=== PATIENT | male | born 1945 | race Caucasian/White ===

== ENCOUNTER 2017-03-02 05:02 | Inpatient (IN) | payer BC, OTHER ==
[2017-02-26 16:48] VITALS: BMI 33.0
[~2017-03-02 05:02] MED LIST: BACITRACIN 30 GM TUBE TOPICAL OINTMENT TP ONE; BACITRACIN 50,000 UNITS VIAL TP ONE; THROMBIN (BOVINE) 5,000 UNIT VIAL TP ONE
--- NOTE | 2017-03-02 07:37 | HP ---
History & Physical Update - History History: No Change - Physical Physical: No Change - Assessment Assessment: No Change - Plan Plan: No Change (71 yo M presents today for a planned lumbar laminectomy L3-[address] Mckinney. This is my first time meeting the patient. I have informed him that I will be assisting Dr. Mckinney for today's surgery. There are no changes in the H&P present in the paper chart.)
[2017-03-02] MEDS ORDERED: BACITRACIN 30 GM TUBE TOPICAL OINTMENT ONE (07:40)
[2017-03-02] MEDS ORDERED: ROCURONIUM BROMIDE 50 MG/5 ML VIAL ONE ×2 (07:50→08:45)
[2017-03-02] MEDS ORDERED: PROPOFOL 20 ML ONE (07:50)
[2017-03-02] MEDS ORDERED: MIDAZOLAM HCL 2 MG/2 ML SINGLE DOSE VIAL ONE (07:50)
[2017-03-02] MEDS ORDERED: ceFAZolin SODIUM 1 GM VIAL IVPB ONE (08:15)
[2017-03-02] MEDS ORDERED: ceFAZolin SODIUM 1 GM VIAL ONE ×2 (08:29→15:50)
[2017-03-02] MEDS ORDERED: GLYCOPYRROLATE 0.2 MG/1 ML VIAL ONE (08:29)
[2017-03-02] MEDS ORDERED: ONDANSETRON 4 MG/2 ML VIAL ONE (08:29)
[2017-03-02] MEDS ORDERED: LIDOCAINE HCL/PF 2% SDV 5ML VIAL ONE (08:29)
[2017-03-02] MEDS ORDERED: DEXAMETHASONE SOD PHOSPHATE 4 MG/1 ML VIAL ONE (08:29)
[2017-03-02] MEDS ORDERED: hydrALAZINE HCL 20 MG/ML VIAL ONE (08:29)
[2017-03-02] MEDS ORDERED: BACITRACIN 50,000 UNITS VIAL TP ONE (08:41)
[2017-03-02] MEDS ORDERED: THROMBIN (BOVINE) 5,000 UNIT VIAL TP ONE (08:41)
[2017-03-02] MEDS ORDERED: DESFLURANE GAS 240 ML BOTTLE IH ONE (08:51)
[2017-03-02] MEDS ORDERED: ePHEDrine SULFATE 50 MG/1 ML AMPULE ONE (09:20)
[2017-03-02] MEDS ORDERED: BUPIVACAINE HCL/PF 0.5% (5MG/ML) 10 ML VIAL ONE (10:10)
[2017-03-02] MEDS ORDERED: BUPIVACAINE HCL/PF 0.5% (5MG/ML) 10 ML VIAL IJ ONE (10:20)
[2017-03-02] MEDS ORDERED: ONDANSETRON 4 MG/2 ML VIAL IVPB PRN (11:03)
[2017-03-02] MEDS ORDERED: BISACODYL 10 MG SUPP.RECT RC PRN (11:03)
--- NOTE | 2017-03-02 11:03 | OP ---
Operative Note - Note: Operative Date: 03/02/17 Pre-Operative Diagnosis: spinal stenosis; DDD; radiculopathy; mechanical instability Operation: Partial B L3, L4, L5 laminectomies, medial facetectomies, foramentomies L3-4 and L4-5; posterolateral bone graft for fusion L3-4 and L4-5 ; microdissection; autologous bone dust and allorgraft Findings: Segmental hypermobility L3-4 and L4-5; stenosis L3-4 > L4-5; Firm disc bulge L3- 4 Implants: [place] 1cc + autologous bone dust Post-Operative Diagnosis: Same as Pre-op Surgeon: Dick Mckinney Cancer Researcher: Layne Estrada Anesthesiologist/SUPERVISOR FRONT: Maria T Bull MD Anesthesia: General Estimated Blood Loss (mls): 50
[2017-03-02] MEDS ORDERED: BACITRACIN 30 GM TUBE TOPICAL OINTMENT TP ONE (11:13)
[2017-03-02] MEDS ORDERED: HYDROmorphone *PCA* 10MG/50ML DISP.SYRIN PCA ONE (11:32)
--- NOTE | 2017-03-02 11:34 | SURG ---
Surgery Demand Generation Manager Note Demand Generation Manager: Layne Estrada PA-C Date of Service: 03/02/17 Diagnosis: spinal stenosis; DDD; radiculopathy; mechanical instability Procedure: Partial bilateral L3, L4, L5 laminectomies, medial facetectomies, foramenotomies L3-4 and L4-5; posterolateral bone graft for fusion L3-4 and L4-5 ; autologous bone dust and allograft I was present for the entirety of the operative procedure. For further detail, please refer to operative report. Visit type - Case Type Case Type: Scheduled Admission - Emergency Emergency Visit: No - New patient This patient is new to me today: Yes Date on this admission: 03/02/17 - Critical Care Critical Care patient: No
[2017-03-02] MEDS ORDERED: PROMETHAZINE HCL 25 MG/1 ML VIAL IVPB PRN (11:35)
[2017-03-02] MEDS ORDERED: DEXAMETHASONE SOD PHOSPHATE 4 MG/1 ML VIAL IVPUSH PRN (11:35)
--- NOTE | 2017-03-02 11:37 | PN ---
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
[2017-03-02] MEDS: HYDROmorphone *PCA* 10MG/50ML DISP.SYRIN PCA SCH (11:40)
[2017-03-02] MEDS ORDERED: LACTATED RINGERS SOLUTION 1,000 ML IV SCH (11:45)
[2017-03-02] MEDS: diazePAM 5 MG TABLET PO SCH ×3 (12:10→21:23)
[2017-03-02 12:21] LABS: MCH 28.7 pg (25.7-33.7); MEAN CELL VOLUME 86.8 fl (80-96); MEAN PLT VOLUME 7.2 fl (7.5-11.1); PLATELET COUNT 203 K/MM3 (134-434); RDW 13.3 % (11.9-15.9)
[2017-03-02 12:52] LABS: CALCIUM 8.8 mg/dL (8.5-10.1); CREATININE 1.2 mg/dL (0.7-1.3)
[2017-03-02] MEDS: DOCUSATE SODIUM 100 MG CAPSULE (FP) PO SCH ×2 (15:51→21:24)
[2017-03-02] MEDS: CEFAZOLIN 1 GM/D5W 50 ML IVPB SCH ×2 (16:02→21:22)
[2017-03-02] MEDS: D5-1/2NS+20 MEQ KCL - 1,000 ML IV SCH (16:03)
[2017-03-02] MEDS ORDERED: CEFAZOLIN (PRE-DOCKED) 50 ML IVPB ONE (21:15)
[2017-03-02] MEDS: NEBIVOLOL 10 MG TABLET (FP) PO SCH (21:23)
[2017-03-02] MEDS: NIFEdipine E.R 60 MG TABLET (UD) PO SCH (21:24)
[2017-03-02] MEDS: ACETAMINOPHEN 325 MG TABLET (FP) PO PRN (21:24)
[2017-03-03] MEDS ORDERED: CEFAZOLIN (PRE-DOCKED) 50 ML IVPB ONE (02:46)
[2017-03-03] MEDS: CEFAZOLIN 1 GM/D5W 50 ML IVPB SCH (02:47)
[2017-03-03] MEDS: D5-1/2NS+20 MEQ KCL - 1,000 ML IV SCH ×4 (02:47→16:55)
[2017-03-03] MEDS: diazePAM 5 MG TABLET PO SCH ×3 (06:44→22:10)
[2017-03-03] MEDS: DOCUSATE SODIUM 100 MG CAPSULE (FP) PO SCH ×3 (06:44→22:09)
--- NOTE | 2017-03-03 07:51 | PN ---
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
[2017-03-03] MEDS ORDERED: PT OWN MED DRAWER 7, Y5N ONE (09:29)
[2017-03-03] MEDS: LISINOPRIL 20 MG TABLET (FP) PO SCH (09:42)
[2017-03-03] MEDS: NIFEdipine E.R 60 MG TABLET (UD) PO SCH ×2 (09:42→22:10)
[2017-03-03] MEDS: NEBIVOLOL 10 MG TABLET (FP) PO SCH ×2 (09:42→22:09)
[2017-03-03] MEDS: FUROSEMIDE 40 MG TABLET (FP) PO SCH (09:42)
[2017-03-03] MEDS: HYDROmorphone *PCA* 10MG/50ML DISP.SYRIN PCA SCH (13:02)
--- NOTE | 2017-03-03 14:26 | OP ---
DATE OF OPERATION: 03/02/2017 PREOPERATIVE DIAGNOSES: 1. L3-L4 greater than L4-L5 degenerative disk disease with bilateral spinal stenosis and lumbar radiculopathy. 2. Obesity. 3. Hypertension. 4. Mechanical instability of the lumbar spine. POSTOPERATIVE DIAGNOSES: 1. L3-L4 greater than L4-L5 degenerative disk disease with bilateral spinal stenosis and lumbar radiculopathy. 2. Obesity. 3. Hypertension. 4. Mechanical instability of the lumbar spine. ATTENDING SURGEON: Dick Rivera MD CHECK SERVICES CLERK: LIBIA Kessler ANESTHESIA: General endotracheal. ANESTHESIOLOGIST: Maria T Bull MD ESTIMATED BLOOD LOSS: 50 mL. PROCEDURE: 1. Partial bilateral L3, L4, and L5 laminectomies for spinal canal lateral recessed decompression including medial facetectomy and foraminotomy at L3-L4 and L4-L5 for decompression of the thecal sac as well as L3, L4, and L5 nerve roots bilaterally ([id number], [id number], and [id number]). 2. [place] of autologous laminar bone dust ([id number]). 3. Posterolateral fusion L3-4 and L4-L5 with autologous bone dust and [place] ( at L3-L4 and L4-L5 ([id number] and [id number]). 4. Microsurgical dissection with operating microscope and microsurgical techniques ([id number]). INDICATIONS: The patient is a 71-year-old male with history of intractable lower back pain, bilateral lumbar radiculopathy. He has undergone multiple modality conservative treatment, but he remains significantly symptomatic. He is opting for surgical intervention. The risks of the procedure include, but are not limited to, bleeding, infection, dural tear with CSF leak, neurological injury, increased thromboembolic risks, [place], stroke, seizure, and . The patient understands the indications for the procedure, the procedure in detail, risks and benefits, and alternatives for treatment of his lumbar condition, and he wished to proceed. No guarantees were given for a favorable outcome. Preoperative medical clearance was obtained. PROCEDURE IN DETAIL: After the patient was taken to the operating room, he was placed in supine position. After general anesthesia was induced and appropriate monitoring lines were placed, he was placed into a prone position on a Otis frame. All pressure points were checked and padded. Localization was obtained with the spinal needle in place and skin was prepped with alcohol and Betadine. O2 saturation of bilateral lower extremity testing was both with 100%. After the patient was sterilely prepped and draped, an approximately 3-inch incision was opened in the midline from about L3 to L5. Subperiosteal dissection was carried out with the periosteal elevator and monopolar electrocautery. A significant amount of paraspinal edema and soft tissue edema and fluid were noted. Subperiosteal dissection was carried out bilaterally preserving the midline structure at the supraspinous as well as the interspinous ligament as well as the spinous processes. Laminar exposure was obtained from top of L3 to bottom of L5. This was done with monopolar electrocautery as well as periosteal elevator. Two self-retaining retractors were inserted. At this point, another localizing x-ray was obtained with the clamp at the bottom of the L4 lamina. After position was verified, partial left L3, L4, and L5 laminectomies were carried out. Bottom of lamina L3, top and bottom of lamina L4, and top of lamina L5 were burred down with high speed pneumatic drill. The medial facetectomy at L3-L4 and L4-L5 was also carried out with high speed pneumatic drill, angled curette, and Kerrison rongeur. As the dura was under chronic pressure, it was starting to bulge out after decompression proceeded. The underlying ligament of flavum was dissected free with the angled curette and resected with the Kerrison rongeur. The canal was palpated with a dental tool to ascertain the patency after decompression was complete. Likely from chronic pressure, the dura was quite thin, especially over the right L3-L4 area just above the disk space level. A 6-0 Prolene suture was used to reinforce the area to prevent a future CSF leak. The dura was extremely thinned at this point, and the arachnoid membrane appears to be bulging right through the dura prior to the repair. Attention was turned to the left-sided L3-4 inter-laminar space, where the decompression was similarly performed as well as bilateral L4-L5 interlaminar space. Bilateral foraminotomy was carried out with angled curette and Kerrison rongeur. The wounds were mirror irrigated with antibiotic-containing irrigation. The midline structure was preserved as stated earlier. There was some hypermobility despite preserving the midline, however. Epidural hemostasis was obtained with bipolar electrocautery and thrombin-soaked powdered Gelfoam. The posterolateral surface of the spine was exposed, and the lateral exposure was obtained, and the proximal transverse process was decorticated with high-speed pneumatic drill. Previously, during the laminectomy, the bone dust was harvested. It was mixed with 1 mL of Tarun. After the decompression was completed, Valsalva maneuver was performed, and there was no CSF leak. The wounds were then irrigated with copious amounts of antibiotic-containing irrigation. The L3-L4 and L4-L5 neural foramina were decompressed bilateral as well as the bilateral L3, L4, and L5 nerve roots. The thecal sac was pulsating nicely with CSF pulsation after decompression was completed. A piece of DuraGen was laid on the decompression, deep to the decompressed area , at L3-L4 and L4-L5 bilaterally as a precaution with thin layer of DuraSeal layer on top of the DuraGen as a precaution. Then, 10 mL of 0.5% Marcaine was injected into the paraspinal muscles. At this point, posterolateral surface of the spine at L3-L4 and L4-L5 had been previously decorticated, and was now packed with autologous morselized bone dust mixed with [place]. This was done at L3-L4 and L4-L5 bilaterally. Dorsal lumbar muscle hemostasis was obtained with bipolar electrocautery. Dorsal lumbar fascia was then closed with 0 Vicryl suture towards the midline. At the midline, subcutaneous fascia was closed with 3-0 Vicryl suture, and skin was closed with 4-0 Vicryl running subcuticular sutures. Steri-Strips and sterile occlusive dressing were applied. The patient tolerated the procedure well, and was turned back to the supine position and extubated. He was moving bilateral upper and lower extremities well in the recovery room. All needle, sponge, and lap counts were found to be correct. He received 1 dose of 2 g of Ancef prior to the incision. The OR time-out procedure was followed. The patient and the were both made aware of the intraoperative findings as well as the details of surgery done. DICK RIVERA M.D. [id number] MTDD
--- NOTE | 2017-03-03 14:36 | PN ---
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
[2017-03-03] MEDS: ACETAMINOPHEN 325 MG TABLET (FP) PO PRN (22:10)
[2017-03-04] MEDS: DOCUSATE SODIUM 100 MG CAPSULE (FP) PO SCH ×3 (06:38→22:31)
[2017-03-04] MEDS: diazePAM 5 MG TABLET PO SCH ×3 (06:39→22:31)
--- NOTE | 2017-03-04 08:20 | PN ---
Progress Note (short form) - Note Progress Note: POD #2 - s/p bilateral partial laminectomy L3-L5. Pt. doing well, resting comfortably in bed. No complaints. Good pain control. 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
[2017-03-04] MEDS ORDERED: oxyCODONE HCL 5 MG TABLET PO PRN (08:21)
--- NOTE | 2017-03-04 08:52 | PN ---
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
[2017-03-04] MEDS: LISINOPRIL 20 MG TABLET (FP) PO SCH (09:40)
[2017-03-04] MEDS: NEBIVOLOL 10 MG TABLET (FP) PO SCH ×2 (09:40→22:31)
[2017-03-04] MEDS: FUROSEMIDE 40 MG TABLET (FP) PO SCH (09:40)
[2017-03-04] MEDS: NIFEdipine E.R 60 MG TABLET (UD) PO SCH ×2 (09:40→22:31)
[2017-03-04 10:11] LABS: BASOPHIL 0.5 % (0-2.0); EOSINOPHIL 0.2 % (0-4.5); MCH 29.1 pg (25.7-33.7); MCHC 33.4 g/dl (32.0-35.9); MEAN CELL VOLUME 87.3 fl (80-96); MEAN PLT VOLUME 7.4 fl (7.5-11.1); NEUTROPHILS 82.3 % (42.8-82.8); PLATELET COUNT 178 K/MM3 (134-434); RDW 13.2 % (11.9-15.9); WHITE BLOOD COUNT 14.6 K/mm3 (4.0-10.0)
[2017-03-04] MEDS: oxyCODONE HCL 5 MG TABLET PO PRN ×2 (10:24→14:58)
[2017-03-04] MEDS: D5-1/2NS+20 MEQ KCL - 1,000 ML IV SCH (10:25)
[2017-03-05] MEDS: oxyCODONE HCL 5 MG TABLET PO PRN ×3 (01:07→22:14)
[2017-03-05] MEDS: DOCUSATE SODIUM 100 MG CAPSULE (FP) PO SCH ×3 (05:12→22:10)
[2017-03-05] MEDS: diazePAM 5 MG TABLET PO SCH ×3 (05:13→22:10)
--- NOTE | 2017-03-05 07:30 | PN ---
Progress Note (short form) - Note Progress Note: NEUROSURGERY No leg pain Incisional pain letting up slightly Spasm Still difficulty getting up and moving around POD #3 Tmax 99.6, VSS Incisional pain Motor 5/5 B DF/PF Sensation intact LT Dressing with no drainage- changed Incentive spirometry Completed IV abx WBC 14.6, will repeat today PO pain meds with iv prn dilaudid for breakthrough pain Adv diet PT
[2017-03-05] MEDS: NIFEdipine E.R 60 MG TABLET (UD) PO SCH ×2 (09:31→22:10)
[2017-03-05] MEDS: NEBIVOLOL 10 MG TABLET (FP) PO SCH ×2 (09:31→22:10)
[2017-03-05] MEDS: LISINOPRIL 20 MG TABLET (FP) PO SCH (09:32)
[2017-03-05] MEDS: FUROSEMIDE 40 MG TABLET (FP) PO SCH (09:32)
[2017-03-05 12:04] LABS: BASOPHIL 0.3 % (0-2.0); EOSINOPHIL 0.8 % (0-4.5); MCH 28.8 pg (25.7-33.7); MEAN CELL VOLUME 87.3 fl (80-96); MEAN PLT VOLUME 7.1 fl (7.5-11.1); NEUTROPHILS 80.8 % (42.8-82.8); PLATELET COUNT 194 K/MM3 (134-434); RDW 13.2 % (11.9-15.9)
[2017-03-05] MEDS ORDERED: PT OWN MED DRAWER 7, Y5N ONE (13:45)
[2017-03-06] MEDS: diazePAM 5 MG TABLET PO SCH ×3 (06:04→22:05)
[2017-03-06] MEDS: DOCUSATE SODIUM 100 MG CAPSULE (FP) PO SCH ×3 (06:04→22:05)
[2017-03-06] MEDS: ACETAMINOPHEN 325 MG TABLET (FP) PO PRN ×2 (06:11→23:43)
--- NOTE | 2017-03-06 07:38 | PN ---
Progress Note (short form) - Note Progress Note: NEUROSURGERY No leg pain Incisional pain letting up slightly Spasm Still difficulty getting up and moving around POD #3 Tmax 101.1, VSS Incisional pain Motor 5/5 B DF/PF Sensation intact LT Dressing C/D/I Incentive spirometry Blood culture x1 WBC 14, will repeat today PO pain meds with iv prn dilaudid for breakthrough pain Adv diet PT
--- NOTE | 2017-03-06 08:34 | CONSULT ---
Consultation: REQUESTING PROVIDER: CONSULT REQUEST: (Infectious Disease) We have been asked to medically evaluate this patient for fever and cough. HISTORY OF PRESENT ILLNESS: Patient is a 71 year old male with a PMHx of HTN who presented for an elective surgery wit Dr. Mckinney for Laminectomy. Patient is POD #4 and was found to be febrile this morning with a temperature of 101.1 F. Patient does report that usually in the mornings when he wakes up he feels warm but resolves immediately after. Otherwise, patient denies any dysuria, leg swelling of pain, cough, shortness of breath, chest pain, palpitations, dizziness, headaches. Patient denies any recent travel and denies any recent dental procedure. REVIEW OF SYSTEMS: CONSTITUTIONAL: Present: fever Absent: chills, diaphoresis, generalized weakness, malaise, loss of appetite, weight change HEENT: Absent: rhinorrhea, nasal congestion, throat pain, throat swelling, difficulty swallowing, mouth swelling, ear pain, eye pain, visual changes CARDIOVASCULAR: Absent: chest pain, syncope, palpitations, irregular heart rate, lightheadedness , peripheral edema RESPIRATORY: Absent: cough, shortness of breath, dyspnea with exertion, orthopnea, wheezing, stridor, hemoptysis GASTROINTESTINAL: Absent: abdominal pain, abdominal distension, nausea, vomiting, diarrhea, constipation, melena, hematochezia GENITOURINARY: Absent: dysuria, frequency, urgency, hesitancy, hematuria, flank pain, genital pain MUSCULOSKELETAL: Absent: myalgia, arthralgia, joint swelling, back pain, neck pain SKIN: Absent: rash, itching, pallor HEMATOLOGIC/IMMUNOLOGIC: Absent: easy bleeding, easy bruising, lymphadenopathy, frequent infections ENDOCRINE: Absent: unexplained weight gain, unexplained weight loss, heat intolerance, cold intolerance NEUROLOGIC: Absent: headache, focal weakness or paresthesias, dizziness, unsteady gait, seizure, mental status changes, bladder or bowel incontinence PSYCHIATRIC: Absent: anxiety, depression, suicidal or homicidal ideation, hallucinations. PHYSICAL EXAMINATION Vital Signs - 24 hr 03/05/17 03/05/17 03/05/17 09:00 14:07 17:30 Temperature 98.3 F 98.4 F 99.5 F Pulse Rate 83 58 L 83 Respiratory 20 16 20 Rate Blood Pressure 139/95 175/85 141/71 O2 Sat by Pulse 92 L Oximetry (%) 03/05/17 03/05/17 03/06/17 21:00 22:00 06:30 Temperature 98.8 F 101.1 F H Pulse Rate 80 78 Respiratory 20 20 Rate Blood Pressure 146/80 159/75 O2 Sat by Pulse 92 L Oximetry (%) GENERAL: Awake, alert, and fully oriented, in no acute distress. NECK: Supple without lymphadenopathy, JVD, or masses. LUNGS: Breath sounds equal, clear to auscultation bilaterally. No wheezes, and no crackles. No accessory muscle use. HEART: Regular rate and rhythm, normal S1 and S2 without murmur, rub or gallop. ABDOMEN: Soft, nontender, not distended, normoactive bowel sounds, no guarding, no rebound, no masses. No hepatomegaly or splenomegaly. EXTREMITIES: No peripheral edema. SKIN: Warm, dry, mild erythema across the lower back with tenderness surrounding the surgical incision site Laboratory Results - last 24 hr 03/05/17 11:50 WBC 14.0 H RBC 4.54 Hgb 13.1 Hct 39.6 MCV 87.3 MCHC 33.0 RDW 13.2 Plt Count 194 MPV 7.1 L Neutrophils % 80.8 Lymphocytes % 8.9 D Monocytes % 9.2 Eosinophils % 0.8 D Basophils % 0.3 Active Medications Generic Name Dose Route Start Last Admin Trade Name Jose Mq PRN Reason Stop Dose Admin Acetaminophen 650 mg 03/02/17 11:03 03/06/17 06:11 Tylenol - PO 650 mg Q6H PRN Administration FEVER Bisacodyl 10 mg 03/02/17 11:03 Dulcolax Suppository - RC DAILY PRN CONSTIPATION Diazepam 5 mg 03/02/17 22:00 03/06/17 06:04 Valium - PO 5 mg TID [facility] Administration Docusate Sodium 100 mg 03/02/17 14:00 03/06/17 06:04 Colace - PO 100 mg TID [place] Administration Furosemide 40 mg 03/03/17 10:00 03/05/17 09:32 Lasix - PO Not Given DAILY [facility] Lisinopril 40 mg 03/03/17 10:00 03/05/17 09:32 Prinivil PO 40 mg DAILY [place] Administration Nebivolol 10 mg 03/02/17 22:00 03/05/17 22:10 Bystolic - PO 10 mg BID [place] Administration Nifedipine 60 mg 03/02/17 22:00 03/05/17 22:10 Procardia Xl - PO 60 mg BID [place] Administration Ondansetron HCl 4 mg 03/02/17 11:03 Zofran Injection IVPB Q6H PRN NAUSEA AND/OR VOMITING Oxycodone HCl 15 mg 03/05/17 16:18 03/05/17 22:14 Roxicodone - PO 15 mg Q6H PRN Administration PAIN Promethazine HCl 12.5 mg 03/02/17 11:35 Phenergan Injection - IVPB Q6H PRN NAUSEA AND/OR VOMITING ASSESSMENT/PLAN: S/P laminectomy on 03/02/2017 Postoperative fever Temperature spiked up to 101.2 Chest X-ray ordered and revealed no acute pathology U/A ordered and negatie Blood and urine cultures sent Received [facility] preoperatively and three bags postoperatively Will continue to monitor off antibiotics Dispo: We will continue to follow the patient. Thank you for this consultative opportunity. Visit type - Emergency Visit Emergency Visit: No - New Patient This patient is new to me today: Yes Date on this admission: 03/09/17 - Critical Care Critical Care patient: No
[2017-03-06 08:45] LABS: BASOPHIL 0.4 % (0-2.0); EOSINOPHIL 0.9 % (0-4.5); MCH 28.6 pg (25.7-33.7); MCHC 32.8 g/dl (32.0-35.9); MEAN CELL VOLUME 87.2 fl (80-96); MEAN PLT VOLUME 7.6 fl (7.5-11.1); NEUTROPHILS 83.2 % (42.8-82.8); PLATELET COUNT 232 K/MM3 (134-434); RDW 13.1 % (11.9-15.9); WHITE BLOOD COUNT 14.6 K/mm3 (4.0-10.0)
[2017-03-06] MEDS: NIFEdipine E.R 60 MG TABLET (UD) PO SCH ×2 (09:14→22:05)
[2017-03-06] MEDS: LISINOPRIL 20 MG TABLET (FP) PO SCH (09:14)
[2017-03-06] MEDS: oxyCODONE HCL 5 MG TABLET PO PRN ×3 (09:15→23:42)
[2017-03-06] MEDS: NEBIVOLOL 10 MG TABLET (FP) PO SCH ×2 (09:15→22:05)
[2017-03-06] MEDS: FUROSEMIDE 40 MG TABLET (FP) PO SCH (09:16)
--- NOTE | 2017-03-06 10:25 | PN ---
Teaching Attending Note Name of Resident: Rosanna Clifton ATTENDING PHYSICIAN STATEMENT I saw and evaluated the patient. I reviewed the resident's note and discussed the case with the resident. I agree with the resident's findings and plan as documented. SUBJECTIVE: PMH HTN feels well no rigors, no chills no sob, voiding well no BM yet OBJECTIVE: Vital Signs Period Temp Pulse Resp BP Sys/Wade Pulse Ox Last 24 Hr 98.4 F-101.1 F 58-83 16-20 141-175/71-85 92 cor-rrr lungs clear abd soft,nt ext no edema no phlebitis dressing intact on back CBC, BMP 03/06/17 06:15 03/02/17 12:00 ASSESSMENT AND PLAN: fevers s/p laminectomy 03/02 send cultures , UA and urine culture, blood cultures cxray no infiltrate would observe off antibiotics for now Problem List - Problems (1) Postoperative fever Code(s): R50.82 - POSTPROCEDURAL FEVER (2) S/P laminectomy Code(s): Z98.890 - OTHER SPECIFIED POSTPROCEDURAL STATES
[2017-03-06 13:08] LABS: URINE APPEARANCE CLEAR; URINE BILIRUBIN NEGATIVE (NEGATIVE); URINE BLOOD NEGATIVE (NEGATIVE); URINE COLOR YELLOW; URINE GLUCOSE (UA) NEGATIVE (NEGATIVE); URINE KETONE NEGATIVE (NEGATIVE); URINE LEUK ESTERASE NEGATIVE (NEGATIVE); URINE NITRITE NEGATIVE (NEGATIVE); URINE PROTEIN NEGATIVE (NEGATIVE); URINE UROBILINOGEN NEGATIVE E.U./dl (0.2-1.0)
[2017-03-07] MEDS: diazePAM 5 MG TABLET PO SCH ×2 (05:57→14:26)
[2017-03-07] MEDS: DOCUSATE SODIUM 100 MG CAPSULE (FP) PO SCH ×2 (05:57→14:26)
[2017-03-07] MEDS: oxyCODONE HCL 5 MG TABLET PO PRN ×2 (06:00→12:32)
--- NOTE | 2017-03-07 07:50 | PN ---
Progress Note (short form) - Note Progress Note: NEUROSURGERY No leg pain Still difficulty getting up and moving around, but "150% better" than a couple days ago Seen by ID walking to bathroom POD #5 Tmax 99.7 now 99.6, VSS Motor 5/5 B DF/PF Sensation intact LT Dressing C/D/I Incentive spirometry Blood culture negative to date WBC 14 range No abx per ID input for now On colace, mag citrate suggested ID f/u PT
--- NOTE | 2017-03-07 08:08 | PN ---
Progress Note, Physician Chief Complaint: ID No antibiotics Low grade temp Feels well - Current Medication List Current Medications: Active Medications Acetaminophen (Tylenol -) 650 mg PO Q6H PRN PRN Reason: FEVER Last Admin: 03/06/17 23:43 Dose: 650 mg Bisacodyl (Dulcolax Suppository -) 10 mg RC DAILY PRN PRN Reason: CONSTIPATION Diazepam (Valium -) 5 mg PO TID [facility] Last Admin: 03/07/17 05:57 Dose: 5 mg Docusate Sodium (Colace -) 100 mg PO TID [facility] Last Admin: 03/07/17 05:57 Dose: 100 mg Furosemide (Lasix -) 40 mg PO DAILY [facility] Last Admin: 03/06/17 09:16 Dose: Not Given Lisinopril (Prinivil) 40 mg PO DAILY [facility] Last Admin: 03/06/17 09:14 Dose: 40 mg Magnesium Citrate (Citroma -) 300 ml PO ONCE ONE Stop: 03/07/17 07:59 Nebivolol (Bystolic -) 10 mg PO BID [facility] Last Admin: 03/06/17 22:05 Dose: 10 mg Nifedipine (Procardia Xl -) 60 mg PO BID [facility] Last Admin: 03/06/17 22:05 Dose: 60 mg Ondansetron HCl (Zofran Injection) 4 mg IVPB Q6H PRN PRN Reason: NAUSEA AND/OR VOMITING Oxycodone HCl (Roxicodone -) 15 mg PO Q6H PRN PRN Reason: PAIN Last Admin: 03/07/17 06:00 Dose: 15 mg Promethazine HCl (Phenergan Injection -) 12.5 mg IVPB Q6H PRN PRN Reason: NAUSEA AND/OR VOMITING - Objective Vital Signs: Vital Signs Temperature 99.6 F 03/07/17 06:00 Pulse Rate 74 03/07/17 06:00 Respiratory Rate 20 03/07/17 06:00 Blood Pressure 148/78 03/07/17 06:00 O2 Sat by Pulse Oximetry (%) 99 03/06/17 21:00 Constitutional: Yes: Well Nourished, No Distress HENT: Yes: WNL, Atraumatic Neck: Yes: WNL, Supple Cardiovascular: Yes: Regular Rate and Rhythm, S1, S2. No: Murmur Respiratory: Yes: WNL, Regular, CTA Bilaterally Gastrointestinal: Yes: WNL, Normal Bowel Sounds, Soft. No: Tenderness, Epigastrium Wound/Incision: No: Draining, Reddened Labs: CBC, BMP 03/06/17 06:15 03/02/17 12:00 Assessment/Plan Microbiology Laboratory Tests 03/02/17 03/06/17 03/06/17 12:00 06:15 12:45 Hgb 13.0 Hct 39.6 Plt Count 232 BUN 20 H Creatinine 1.2 D Ur Leukocyte Esterase Negative Assessment Day 5 post spinal surgery Elevated WBC noted previously Oct Cultures negative Doubt infection As discussed with Dr Mckinney consider discharge as outpt follow up Miguelito ORNELAS
[2017-03-07 08:48] LABS: BASOPHIL 0.4 % (0-2.0); EOSINOPHIL 1.6 % (0-4.5); MCH 28.7 pg (25.7-33.7); MCHC 32.7 g/dl (32.0-35.9); MEAN CELL VOLUME 87.7 fl (80-96); MEAN PLT VOLUME 7.1 fl (7.5-11.1); NEUTROPHILS 80.7 % (42.8-82.8); PLATELET COUNT 243 K/MM3 (134-434); RDW 13.1 % (11.9-15.9); WHITE BLOOD COUNT 15.5 K/mm3 (4.0-10.0)
[2017-03-07] MEDS ORDERED: MAGNESIUM CITRATE 300 ML BOTTLE PO ONE (09:15)
[2017-03-07 09:17] LABS: ALBUMIN 2.8 g/dl (3.4-5.0); BILIRUBIN,DIRECT 0.2 mg/dL (0.0-0.2); BILIRUBIN,TOTAL 0.8 mg/dL (0.2-1.0)
[2017-03-07] MEDS: NEBIVOLOL 10 MG TABLET (FP) PO SCH (09:44)
[2017-03-07] MEDS: NIFEdipine E.R 60 MG TABLET (UD) PO SCH (09:44)
[2017-03-07] MEDS: LISINOPRIL 20 MG TABLET (FP) PO SCH (09:45)
[2017-03-07] MEDS: FUROSEMIDE 40 MG TABLET (FP) PO SCH (09:45)
--- NOTE | 2017-03-07 10:32 | PN ---
Progress Note (short form) - Note Progress Note: NEUROSURGERY Care d/w ID Blood/urine culture negative to date WBC 15.5 No abx per ID input Discharge home Pt to take temperature and observe incision Instructions given
[2017-03-07 15:12] VITALS: BP 167/79; PULSE 80; TEMP 99.7
== END 2017-03-07 17:20 | disposition home or self-care (01) | DRG 460 ==
LOC: JSAMEDAYSX 05:02 → EDSTATUS 08:00 → J8W 15:32
PROVIDERS: ADMIT Neurological Surgery; ATTEND Neurological Surgery
PROC: 01NB0ZZ Release Lumbar Nerve, Open Approach (ICD-10-PCS; 2017-03-02)
PROC: 01NB0ZZ Release Lumbar Nerve, Open Approach (ICD-10-PCS; 2017-03-02)
PROC: 0SG1071 Fusion of 2 or more Lumbar Vertebral Joints with Autologous Tissue Substitute, Posterior Approach, Posterior Column, Open Approach (ICD-10-PCS; principal; 2017-03-02 08:00)
DX: M51.36 Other intervertebral disc degeneration, lumbar region (principal); M48.06 Spinal stenosis, lumbar region; M54.16 Radiculopathy, lumbar region; I50.9 Heart failure, unspecified; I10 Essential (primary) hypertension; M53.2X6 Spinal instabilities, lumbar region; E66.8 Other obesity; Z68.33 Body mass index [BMI] 33.0-33.9, adult; Z71.3 Dietary counseling and surveillance; M13.88 Other specified arthritis, other site
CPT/HCPCS: 36415; 71020-TC; 72100-TC; 80048; 80051; 80076; 81003; 82150; 85025; 85027; 87040; 87086; 93970-TC; 94010; 94760; 97116-GP; 97162-PG

== ENCOUNTER 2023-04-07 03:50 | Day surgery (SDC) | payer OTHER, BC ==
[2023-04-03 08:58] VITALS: BMI 33.2
[2023-04-07] MEDS ORDERED: ONDANSETRON 4 MG/2 ML VIAL IVPUSH PRN (07:08)
[2023-04-07] MEDS ORDERED: ACETAMINOPHEN 325 MG TABLET (FP) PO PRN (07:08)
[2023-04-07] MEDS ORDERED: oxyCODONE HCL 5 MG TABLET PO PRN ×2 (07:08)
[2023-04-07] MEDS ORDERED: LACTATED RINGERS SOLUTION 1,000 ML IV SCH (07:15)
[2023-04-07] MEDS ORDERED: PROPOFOL 20 ML ONE (07:33)
[2023-04-07] MEDS ORDERED: MIDAZOLAM HCL 2 MG/2 ML SINGLE DOSE VIAL ONE (07:33)
[2023-04-07] MEDS ORDERED: LIDOCAINE HCL/PF 2% SDV 5ML VIAL ONE (07:33)
[2023-04-07] MEDS ORDERED: AMPICILLIN NA/SULBACTAM NA 3 GM VIAL IVPB ONE (07:50)
[2023-04-07] MEDS ORDERED: ONDANSETRON 4 MG/2 ML VIAL ONE ×2 (07:54→10:43)
[2023-04-07] MEDS ORDERED: KETOROLAC TROMETHAMINE 30 MG/1 ML VIAL ONE (07:54)
[2023-04-07] MEDS ORDERED: DEXAMETHASONE SOD PHOSPHATE 4 MG/1 ML VIAL ONE (07:54)
[2023-04-07] MEDS ORDERED: ROCURONIUM BROMIDE 50 MG/5 ML SYRINGE ONE (08:00)
[2023-04-07] MEDS ORDERED: GLYCOPYRROLATE 0.2 MG/1 ML VIAL ONE ×2 (08:09)
[2023-04-07] MEDS ORDERED: NEOSTIGMINE METHYLSULFATE 0.5 MG/1 ML - 10 ML MDV ONE (08:09)
[2023-04-07] MEDS ORDERED: ELECTROLYTE-148 SOLN 1,000 ML IV SCH (08:45)
[2023-04-07] MEDS ORDERED: ACETAMINOPHEN 325 MG TABLET (FP) ONE (10:43)
[2023-04-07] MEDS ORDERED: oxyCODONE HCL 5 MG TABLET ONE (10:43)
[2023-04-07 11:10] VITALS: RESP 16
[2023-04-07 11:50] VITALS: BP 146/71; PULSE 68; TEMP 98
== END 2023-04-07 12:30 | disposition home or self-care (01) ==
LOC: JASU-SURG 03:50
PROVIDERS: ATTEND Urology
PROC: 0T778DZ Dilation of Left Ureter with Intraluminal Device, Via Natural or Artificial Opening Endoscopic (ICD-10-PCS; 2023-04-07)
PROC: 0TBB8ZZ Excision of Bladder, Via Natural or Artificial Opening Endoscopic (ICD-10-PCS; principal; 2023-04-07 07:30)
DX: C67.9 Malignant neoplasm of bladder, unspecified (principal)
CPT/HCPCS: 76000-TC-FY; 88307-TC; 94760; C1894; C2617

== ENCOUNTER 2024-01-07 04:09 | Day surgery (SDC) | payer OTHER, BC ==
[2024-01-05 17:28] VITALS: BMI 29.9
[2024-01-07] MEDS ORDERED: PROPOFOL 40 ML ONE (12:16)
[2024-01-07] MEDS: ceFAZolin SODIUM 1 GM VIAL IVPB ONE (12:25)
[2024-01-07] MEDS ORDERED: LIDOCAINE HCL/PF 2% SDV 5ML VIAL ONE (12:41)
[2024-01-07] MEDS ORDERED: DEXAMETHASONE SOD PHOSPHATE 4 MG/1 ML VIAL ONE (12:41)
[2024-01-07] MEDS ORDERED: ONDANSETRON 4 MG/2 ML VIAL ONE (12:41)
[2024-01-07] MEDS ORDERED: ceFAZolin SODIUM 1 GM VIAL ONE (12:41)
[2024-01-07] MEDS ORDERED: oxyCODONE HCL 5 MG TABLET PO PRN (13:06)
[2024-01-07] MEDS ORDERED: ELECTROLYTE-148 SOLN 1,000 ML IV SCH (13:15)
[2024-01-07 15:31] VITALS: BP 135/60; PULSE 73; RESP 16; TEMP 98.4
== END 2024-01-07 15:45 | disposition home or self-care (01) ==
LOC: JASU-SURG 04:09
PROVIDERS: ATTEND Urology
PROC: 0TBB8ZZ Excision of Bladder, Via Natural or Artificial Opening Endoscopic (ICD-10-PCS; principal; 2024-01-07 13:00)
DX: D09.0 Carcinoma in situ of bladder (principal)
CPT/HCPCS: 88307-TC; 88341-TC; 88342-TC; 94760

== ENCOUNTER 2024-07-06 20:53 | Observation (INO) | payer OTHER, BC ==
[2024-07-06 21:01] VITALS: RESP 18
[2024-07-06 21:52] LABS: BASO % 0.7 % (0-2.0); EOS % 3.2 % (0-4.5); HEMOGLOBIN 12.7 GM/dL (11.7-16.9); LYMPH % 10.9 % (8-40); MCH 25.9 pg (25.7-33.7); MCHC 32.5 g/dl (32.0-35.9); MEAN CELL VOLUME 79.8 fl (80-96); MEAN PLT VOLUME 7.1 fl (7.5-11.1); MONO % 8.8 % (3.8-10.2); NEUT % 76.4 % (42.8-82.8); PLATELET COUNT 289 10^3/uL (134-434); RBC 4.89 M/mm3 (4.00-5.60); RDW 17.5 % (11.9-15.9); WHITE BLOOD COUNT 13.4 K/mm3 (4.0-10.0)
[2024-07-06 22:00] LABS: POTASSIUM 5.9 mmol/L (3.5-5.1)
[2024-07-06 22:02] LABS: INR 0.92 (0.83-1.09); PROTHROMBIN TIME (PATIENT) 10.6 SEC (9.7-13.0)
[2024-07-06 22:03] LABS: CALCIUM 9.1 mg/dL (8.5-10.1)
[2024-07-06 22:04] LABS: ALBUMIN 3.6 g/dl (3.4-5.0); BLOOD UREA NITROGEN 43.2 mg/dL (7-18)
[2024-07-06 22:05] LABS: ACTIVATED PTT 31.2 SECONDS (25.2-36.5)
[2024-07-06 22:07] LABS: CREATININE 1.6 mg/dL (0.55-1.3)
[2024-07-06 22:08] LABS: BILIRUBIN,TOTAL 0.6 mg/dL (0.2-1); TOT PROT 6.8 g/dl (6.4-8.2)
[2024-07-06] MEDS: SODIUM CHLORIDE 0.9% 500 ML INFUS.BAG IV ONE (22:29)
[2024-07-06] MEDS ORDERED: SODIUM ZIRCONIUM CYCLOSILICATE (LOKELMA) 5 GM PACKET ONE (23:06)
[2024-07-06] MEDS: SODIUM ZIRCONIUM CYCLOSILICATE (LOKELMA) 5 GM PACKET PO ONE (23:13)
[2024-07-06] MEDS ORDERED: DEXTROSE 50%-WATER 25 GM/50 ML DISP.SYRIN ONE (23:14)
[2024-07-06] MEDS ORDERED: INSULIN REGULAR HUMAN 100 UNITS/ML *VIAL ONE (23:15)
[2024-07-06] MEDS ORDERED: ACETAMINOPHEN 325 MG TABLET (FP) ONE (23:25)
[2024-07-06] MEDS ORDERED: oxyCODONE HCL 5 MG TABLET ONE (23:25)
[2024-07-06] MEDS: oxyCODONE HCL 5 MG TABLET PO ONE (23:28)
[2024-07-06] MEDS: INSULIN REGULAR HUMAN 100 UNITS/ML *VIAL IVPUSH ONE (23:29)
[2024-07-06] MEDS: DEXTROSE 50%-WATER - 25 GM/50 ML VIAL IVPUSH ONE (23:29)
[2024-07-06] MEDS: ACETAMINOPHEN 325 MG TABLET (FP) PO ONE (23:29)
[2024-07-07 01:53] LABS: EPI CELLS 1 /uL (0-25.1); HYALINE CASTS 1 /uL (0-3.1); PH,URINE 6.5 (5.0-8.0); URINE APPEARANCE CLEAR; URINE BACTERIA 1244 /uL (0-1359); URINE BILIRUBIN NEGATIVE (NEGATIVE); URINE COLOR YELLOW; URINE GLUCOSE (UA) NEGATIVE (NEGATIVE); URINE KETONE NEGATIVE (NEGATIVE); URINE LEUK ESTERASE 2+ (NEGATIVE); URINE NITRITE NEGATIVE (NEGATIVE); URINE PROTEIN NEGATIVE (NEGATIVE); URINE RBC 67 /uL (0-23.9); URINE UROBILINOGEN 0.2 mg/dL (0.2-1.0); URINE WBC 126 /uL (0-25.8)
[2024-07-07 02:20] LABS: POTASSIUM 5.9 mmol/L (3.5-5.1)
[2024-07-07 02:22] LABS: ALBUMIN 3.3 g/dl (3.4-5.0); CALCIUM 8.9 mg/dL (8.5-10.1)
[2024-07-07 02:25] LABS: CREATININE 1.4 mg/dL (0.55-1.3)
[2024-07-07 02:27] LABS: BILIRUBIN,TOTAL 0.4 mg/dL (0.2-1); TOT PROT 6.1 g/dl (6.4-8.2)
[2024-07-07] MEDS: SODIUM ZIRCONIUM CYCLOSILICATE (LOKELMA) 5 GM PACKET PO ONE ×2 (02:27→05:03)
[2024-07-07] MEDS: SODIUM CHLORIDE 1,000 ML IV SCH ×2 (02:27→18:23)
[2024-07-07] MEDS ORDERED: SODIUM ZIRCONIUM CYCLOSILICATE (LOKELMA) 10 GM PACKET ONE ×3 (02:32→17:32)
[2024-07-07] MEDS ORDERED: DEXTROSE 50%-WATER 25 GM/50 ML DISP.SYRIN ONE (04:32)
[2024-07-07] MEDS: INSULIN REGULAR HUMAN 100 UNITS/ML *VIAL IVPUSH ONE (05:03)
[2024-07-07] MEDS: DEXTROSE 50%-WATER 25 GM/50 ML DISP.SYRIN IVPUSH ONE (05:03)
[2024-07-07] MEDS: amLODIPine BESYLATE 10 MG TABLET (FP) PO ONE (05:03)
[2024-07-07] MEDS ORDERED: oxyCODONE HCL 5 MG TABLET PO PRN (05:39)
[2024-07-07] MEDS ORDERED: hydrALAZINE HCL 25 MG TABLET (FP) ONE ×3 (05:56→13:15)
[2024-07-07] MEDS ORDERED: ACETAMINOPHEN 325 MG TABLET (FP) ONE ×2 (06:06→17:31)
[2024-07-07] MEDS ORDERED: oxyCODONE HCL 5 MG TABLET ONE ×3 (06:07→17:31)
[2024-07-07] MEDS: hydrALAZINE HCL 25 MG TABLET (FP) PO SCH ×2 (06:09→21:13)
[2024-07-07] MEDS: oxyCODONE HCL 5 MG TABLET PO PRN ×2 (06:11→09:56)
[2024-07-07 06:31] LABS: BASO % 0.7 % (0-2.0); HEMATOCRIT 35.5 % (35.4-49); HEMOGLOBIN 11.4 GM/dL (11.7-16.9); LYMPH % 9.8 % (8-40); MCH 26.2 pg (25.7-33.7); MCHC 32.1 g/dl (32.0-35.9); MEAN CELL VOLUME 81.6 fl (80-96); MEAN PLT VOLUME 6.8 fl (7.5-11.1); MONO % 4.5 % (3.8-10.2); PLATELET COUNT 207 10^3/uL (134-434); RBC 4.36 M/mm3 (4.00-5.60); RDW 17.2 % (11.9-15.9); WHITE BLOOD COUNT 10.4 K/mm3 (4.0-10.0)
[2024-07-07 06:49] LABS: POTASSIUM 5.1 mmol/L (3.5-5.1)
[2024-07-07 06:54] LABS: CALCIUM 8.6 mg/dL (8.5-10.1)
[2024-07-07 06:55] LABS: ALBUMIN 2.9 g/dl (3.4-5.0); BLOOD UREA NITROGEN 40.6 mg/dL (7-18)
[2024-07-07 06:58] LABS: CREATININE 1.4 mg/dL (0.55-1.3); PHOSPHOROUS 2.8 mg/dL (2.5-4.9)
[2024-07-07 06:59] LABS: BILIRUBIN,TOTAL 0.5 mg/dL (0.2-1); TOT PROT 5.7 g/dl (6.4-8.2)
[2024-07-07] MEDS ORDERED: ENOXAPARIN NA (PORCINE) 40 MG/0.4 ML DISP.SYRIN SQ ONE (09:40)
[2024-07-07] MEDS ORDERED: amLODIPine BESYLATE 10 MG TABLET (FP) ONE (09:40)
[2024-07-07] MEDS: amLODIPine BESYLATE 10 MG TABLET (FP) PO SCH (09:56)
[2024-07-07] MEDS: ENOXAPARIN NA (PORCINE) 40 MG/0.4 ML DISP.SYRIN SQ SCH (09:56)
[2024-07-07] MEDS: SODIUM CHLORIDE 0.45% 1,000 ML IV SCH (17:42)
[2024-07-07] MEDS: SODIUM ZIRCONIUM CYCLOSILICATE (LOKELMA) 5 GM PACKET PO SCH (17:43)
[2024-07-07] MEDS: ACETAMINOPHEN 325 MG TABLET (FP) PO PRN (17:43)
[2024-07-07 20:12] VITALS: BMI 31.7
[2024-07-07] MEDS ORDERED: SODIUM ZIRCONIUM CYCLOSILICATE (LOKELMA) 5 GM PACKET PO ONE (22:49)
[2024-07-08 08:12] LABS: HEMATOCRIT 37.2 % (35.4-49); HEMOGLOBIN 12.3 GM/dL (11.7-16.9); MCH 26.3 pg (25.7-33.7); MCHC 33.1 g/dl (32.0-35.9); MEAN CELL VOLUME 79.7 fl (80-96); PLATELET COUNT 229 10^3/uL (134-434); RBC 4.67 M/mm3 (4.00-5.60); RDW 17.5 % (11.9-15.9); WHITE BLOOD COUNT 9.5 K/mm3 (4.0-10.0)
[2024-07-08 08:38] LABS: BLOOD UREA NITROGEN 33.4 mg/dL (7-18); CALCIUM 9.4 mg/dL (8.5-10.1)
[2024-07-08 08:40] LABS: MAGNESIUM 2.1 mg/dL (1.8-2.4)
[2024-07-08 08:43] LABS: CREATININE 1.1 mg/dL (0.55-1.3)
[2024-07-08] MEDS: LIDOCAINE 5% TOPICAL PATCH TP SCH (10:08)
[2024-07-08 13:32] VITALS: BP 137/70; PULSE 79; TEMP 99.5
[2024-07-08] MEDS ORDERED: LIDOCAINE PATCH REMOVAL MC SCH (22:00)
== END 2024-07-08 15:41 | disposition home or self-care (01) ==
LOC: JER 20:53 → JERBED 22:53 → J7W 07-07 19:37
PROVIDERS: ADMIT Internal Medicine; ATTEND Internal Medicine
PROC: 3E033GC Introduction of Other Therapeutic Substance into Peripheral Vein, Percutaneous Approach (ICD-10-PCS; principal; 2024-07-06)
PROC: 3E023GC Introduction of Other Therapeutic Substance into Muscle, Percutaneous Approach (ICD-10-PCS; 2024-07-06)
PROC: 3E033VG Introduction of Insulin into Peripheral Vein, Percutaneous Approach (ICD-10-PCS; 2024-07-06)
PROC: 3E0337Z Introduction of Electrolytic and Water Balance Substance into Peripheral Vein, Percutaneous Approach (ICD-10-PCS; 2024-07-06)
DX: N40.0 Benign prostatic hyperplasia without lower urinary tract symptoms (principal); M48.00 Spinal stenosis, site unspecified; I11.0 Hypertensive heart disease with heart failure; N13.30 Unspecified hydronephrosis; E87.5 Hyperkalemia; N17.9 Acute kidney failure, unspecified; I15.8 Other secondary hypertension; Z85.51 Personal history of malignant neoplasm of bladder; Z87.891 Personal history of nicotine dependence
CPT/HCPCS: 36415; 80048; 80053; 81003; 82533; 82550; 83735; 84100; 84132; 85025; 85027; 85610; 85730; 86850; 86900; 86901; 87086; 87186; 93005; 93010; 93306-TC; 93975; 96361; 96372; 96374; 96375; 96376; 99285-25; G0378